=== PATIENT | male | born 1975 | race Asian ===

== ENCOUNTER 2018-06-06 13:58 | Inpatient (IN) | payer OTHER, MEDICAID ==
[~2018-06-06] VITALS: Ht 180.3 cm; Wt 95.7 kg
[2018-06-06 16:45] LABS: BASOPHIL % 1.1 % (0-2); PLATELET COUNT 294 x10^3mcL (130-400); RED CELL DISTRIBUTION WIDTH 13.3 % (11.5-14.5)
[2018-06-06 16:59] LABS: CALCIUM 8.8 mg/dL (8.5-10.1); CARBON DIOXIDE 29.7 mmol/L (21-32); CHLORIDE SERUM 101 mmol/L (98-107); CREATININE SERUM 0.7 mg/dL (0.7-1.3); GFR1 > 60 mL/min; GLUCOSE SERUM 107 mg/dL (74-106); POTASSIUM SERUM 3.8 mmol/L (3.5-5.1); SODIUM SERUM 139 mmol/L (136-145)
[2018-06-06] MEDS ORDERED: FERROUS SULFAT325 M2 PO (17:08)
[2018-06-06] MEDS ORDERED: DANTRIUM25 MG PO (17:08)
[2018-06-06] MEDS ORDERED: PEPCID20 MG PO (17:08)
[2018-06-06] MEDS ORDERED: VITAMIN C500 M6 PO (17:08)
[2018-06-06] MEDS ORDERED: CLONAZEPAM2 MG PO (17:09)
[2018-06-06] MEDS ORDERED: SEROQUEL25 MG PO (17:09)
[2018-06-06] MEDS ORDERED: VIMPAT100 M1 PO (17:09)
[2018-06-06 17:11] LABS: FREE T4 0.85 ng/dL (0.76-1.46); FREE THYROXINE INDEX 2.3 ug/dL (1.4-4.5)
[2018-06-06 17:15] LABS: T3 TOTAL 0.98 ng/mL
[2018-06-06 17:18] LABS: ALBUMIN 3.9 g/dL (3.4-5.0); ALKALINE PHOSPHATASE 126 U/L (46-116); ALT/SGPT 77 U/L (16-63); AST/SGOT 38 U/L (15-37); BILIRUBIN TOTAL 0.39 mg/dL (0.20-1.00); C REACTIVE PROTEIN 0.5 mg/dL (<=0.9); TOTAL PROTEIN, SERUM 7.5 g/dL (6.4-8.2)
[2018-06-06 17:26] LABS: CK-MB 1.8 ng/mL (0-3.6)
[2018-06-06 17:37] LABS: ERYTHROCYTE SED RATE 6 mm/hr (0-15)
[2018-06-06 18:05] LABS: MAGNESIUM 2.2 mg/dL (1.8-2.4)
[2018-06-06 18:10] LABS: CHOLESTEROL/HDL RATIO 2.7
[2018-06-06 18:24] VITALS: BP 137/77
[2018-06-06 18:28] LABS: UA SPECIFIC GRAVITY <=1.005 (1.005-1.035); microscopic required? YES; urine erythrocyte TRACE (NEGATIVE)
[2018-06-07 00:09] VITALS: Ht 180.3 cm; Wt 95.7 kg
[2018-06-07 05:41] VITALS: BP 116/70
[2018-06-07 07:05] LABS: ALBUMIN 3.6 g/dL (3.4-5.0); ALKALINE PHOSPHATASE 111 U/L (46-116); ALT/SGPT 68 U/L (16-63); AST/SGOT 31 U/L (15-37); BILIRUBIN TOTAL 0.4 mg/dL (0.20-1.00); CALCIUM 9.2 mg/dL (8.5-10.1); CARBON DIOXIDE 27.3 mmol/L (21-32); CHLORIDE SERUM 104 mmol/L (98-107); CREATININE SERUM 0.7 mg/dL (0.7-1.3); GFR1 > 60 mL/min; GLUCOSE SERUM 101 mg/dL (74-106); MAGNESIUM 1.9 mg/dL (1.8-2.4); PHOSPHOROUS 4.6 mg/dL (2.5-4.9); POTASSIUM SERUM 4.1 mmol/L (3.5-5.1); SODIUM SERUM 140 mmol/L (136-145); TOTAL PROTEIN, SERUM 6.6 g/dL (6.4-8.2)
[2018-06-07 07:10] LABS: BASOPHIL % 0.2 % (0-2); PLATELET COUNT 277 x10^3mcL (130-400); RED CELL DISTRIBUTION WIDTH 13.6 % (11.5-14.5)
[2018-06-07 09:23] VITALS: BP 108/69
[2018-06-07 17:00] VITALS: BP 123/82
[2018-06-07 20:57] VITALS: BP 113/66
[2018-06-08 05:06] VITALS: BP 103/65
[2018-06-08 07:28] LABS: CALCIUM 8.8 mg/dL (8.5-10.1); CARBON DIOXIDE 26.1 mmol/L (21-32); CHLORIDE SERUM 102 mmol/L (98-107); CREATININE SERUM 0.7 mg/dL (0.7-1.3); GFR1 > 60 mL/min; GLUCOSE SERUM 103 mg/dL (74-106); MAGNESIUM 2.1 mg/dL (1.8-2.4); PHOSPHOROUS 4.7 mg/dL (2.5-4.9); POTASSIUM SERUM 3.5 mmol/L (3.5-5.1); SODIUM SERUM 139 mmol/L (136-145)
[2018-06-08 07:36] LABS: BASOPHIL % 0.2 % (0-2); PLATELET COUNT 281 x10^3mcL (130-400); RED CELL DISTRIBUTION WIDTH 13.2 % (11.5-14.5)
[2018-06-08 09:01] VITALS: BP 103/65
[2018-06-08 16:57] VITALS: BP 123/73
[2018-06-08 20:50] VITALS: BP 121/80
[2018-06-09 05:18] VITALS: BP 115/71
[2018-06-09 07:09] LABS: BASOPHIL % 0.4 % (0-2); PLATELET COUNT 305 x10^3mcL (130-400)
[2018-06-09 07:20] LABS: CALCIUM 8.8 mg/dL (8.5-10.1); CARBON DIOXIDE 26.8 mmol/L (21-32); CHLORIDE SERUM 100 mmol/L (98-107); CREATININE SERUM 0.7 mg/dL (0.7-1.3); GFR1 > 60 mL/min; GLUCOSE SERUM 117 mg/dL (74-106); MAGNESIUM 1.8 mg/dL (1.8-2.4); PHOSPHOROUS 4.3 mg/dL (2.5-4.9); POTASSIUM SERUM 3.3 mmol/L (3.5-5.1); SODIUM SERUM 137 mmol/L (136-145)
[2018-06-09 09:03] VITALS: BP 113/80
[2018-06-09 16:08] VITALS: BP 129/83
[2018-06-09 16:14] VITALS: BP 122/86
[2018-06-09] MEDS ORDERED: NOVAPLUS MEROPEN1 GM IV (19:29)
[2018-06-09 19:58] VITALS: BP 122/86
[2018-06-09 21:23] VITALS: BP 119/73
== END 2018-06-09 22:32 | disposition home health service (06) | DRG 690 ==
LOC: ED 13:58 → MU 17:28
PROVIDERS: Specialist; ADMIT Family Medicine
DX: N39.0 Urinary tract infection, site not specified (principal); E72.20 Disorder of urea cycle metabolism, unspecified; E87.6 Hypokalemia; B96.1 Klebsiella pneumoniae [K. pneumoniae] as the cause of diseases classified elsewhere; Z86.61 Personal history of infections of the central nervous system; Z16.24 Resistance to multiple antibiotics
CPT/HCPCS: 84439; 97110-GP; 97116-GP; C1751; J1170; J1580; J2185; J7030; Q0092

== ENCOUNTER 2018-06-23 12:04 | Emergency (ER) | payer OTHER, MEDICAID ==
[~2018-06-23] VITALS: Ht 180.3 cm; Wt 97.7 kg
[~2018-06-23 12:04] MED LIST: CLONAZEPAM2 MG PO; DANTRIUM25 MG PO; FERROUS SULFAT325 M2 PO; NOVAPLUS MEROPEN1 GM IV; PEPCID20 MG PO; SEROQUEL25 MG PO; VIMPAT100 M1 PO; VITAMIN C500 M6 PO
[2018-06-23 12:37] VITALS: Ht 180.3 cm; Wt 97.7 kg
[2018-06-23 16:36] VITALS: BP 124/68
== END 2018-06-23 16:36 | disposition home or self-care (01) ==
LOC: ED 12:04
DX: T82.898A Other specified complication of vascular prosthetic devices, implants and grafts, initial encounter (principal); Z88.8 Allergy status to other drugs, medicaments and biological substances; Z98.890 Other specified postprocedural states

== ENCOUNTER 2018-07-07 17:16 | Inpatient (IN) | payer OTHER, MEDICAID ==
[~2018-07-07] VITALS: Ht 180.3 cm; Wt 97.7 kg
[2018-07-07 18:59] LABS: CALCIUM 8.7 mg/dL (8.5-10.1); CHLORIDE SERUM 103 mmol/L (98-107); CREATININE SERUM 0.8 mg/dL (0.7-1.3); GFR1 > 60 mL/min; GLUCOSE SERUM 104 mg/dL (74-106); POTASSIUM SERUM 4.1 mmol/L (3.5-5.1); SODIUM SERUM 140 mmol/L (136-145)
[2018-07-07 19:01] LABS: UA SPECIFIC GRAVITY <=1.005 (1.005-1.035); microscopic required? YES; urine erythrocyte NEGATIVE (NEGATIVE)
[2018-07-07 19:02] LABS: PLATELET COUNT 285 x10^3mcL (130-400); RED CELL DISTRIBUTION WIDTH 13.1 % (11.5-14.5)
[2018-07-07 19:04] LABS: ALBUMIN 3.8 g/dL (3.4-5.0); ALKALINE PHOSPHATASE 116 U/L (46-116); ALT/SGPT 41 U/L (16-63); AST/SGOT 21 U/L (15-37); BILIRUBIN TOTAL 0.29 mg/dL (0.20-1.00)
[2018-07-07 19:41] LABS: BAND NEUTROPHIL 0 % (0-10); BASOPHIL 0 % (0-2); MONOCYTE 16 % (0-7); SEGMENTED NEUTROPHILS 31 % (37-75)
[2018-07-07 19:43] LABS: rbc morphology (normal/abnorm) NORMAL (NORMAL)
[2018-07-07 20:27] LABS: T3 TOTAL 1.15 ng/mL
[2018-07-07 20:31] LABS: FREE T4 0.94 ng/dL (0.76-1.46); FREE THYROXINE INDEX 2.5 ug/dL (1.4-4.5); T4(THYROXINE) 6.5 ug/dL (4.7-13.3)
[2018-07-07 20:51] LABS: CHOLESTEROL/HDL RATIO 3.4; MAGNESIUM 2.2 mg/dL (1.8-2.4)
[2018-07-07 21:15] VITALS: BP 113/78
[2018-07-07 21:53] LABS: AMPHETAMINE QUAL UR NONE DETECTED (See below)
[2018-07-08 05:13] VITALS: BP 100/53
[2018-07-08 07:44] LABS: CALCIUM 8.9 mg/dL (8.5-10.1); CARBON DIOXIDE 27.6 mmol/L (21-32); CHLORIDE SERUM 106 mmol/L (98-107); CREATININE SERUM 0.7 mg/dL (0.7-1.3); GFR1 > 60 mL/min; GLUCOSE SERUM 93 mg/dL (74-106); PHOSPHOROUS 4.3 mg/dL (2.5-4.9); POTASSIUM SERUM 3.5 mmol/L (3.5-5.1); SODIUM SERUM 141 mmol/L (136-145)
[2018-07-08 08:26] LABS: PLATELET COUNT 257 x10^3mcL (130-400)
[2018-07-08 08:44] VITALS: BP 111/67
[2018-07-08 10:44] LABS: BAND NEUTROPHIL 4 % (0-10); MONOCYTE 24 % (0-7); SEGMENTED NEUTROPHILS 24 % (37-75)
[2018-07-08 10:45] LABS: PLATELET MORPHOLOGY PLATELETS NORMAL
[2018-07-08] MEDS ORDERED: VIMPAT100 M1 PO (11:25)
[2018-07-08 14:17] LABS: rbc morphology (normal/abnorm) NORMAL (NORMAL)
[2018-07-08 17:02] VITALS: BP 126/77
[2018-07-08 20:44] VITALS: BP 122/76
[2018-07-09 06:32] LABS: CALCIUM 9.2 mg/dL (8.5-10.1); CARBON DIOXIDE 26.9 mmol/L (21-32); CHLORIDE SERUM 106 mmol/L (98-107); CREATININE SERUM 0.7 mg/dL (0.7-1.3); GFR1 > 60 mL/min; GLUCOSE SERUM 89 mg/dL (74-106); POTASSIUM SERUM 3.5 mmol/L (3.5-5.1); SODIUM SERUM 142 mmol/L (136-145)
[2018-07-09 07:24] LABS: PLATELET COUNT 276 x10^3mcL (130-400); RED CELL DISTRIBUTION WIDTH 13.1 % (11.5-14.5)
[2018-07-09 09:05] LABS: ATYPICAL LYMPH 10 %; BAND NEUTROPHIL 1 % (0-10); BASOPHIL 0 % (0-2); MONOCYTE 17 % (0-7); SEGMENTED NEUTROPHILS 53 % (37-75)
[2018-07-09 09:06] LABS: rbc morphology (normal/abnorm) ABNORMAL (NORMAL)
[2018-07-09 09:07] LABS: PLATELET MORPHOLOGY PLATELETS NORMAL
[2018-07-09 10:07] VITALS: BP 133/80
[2018-07-09 12:00] VITALS: BP 124/76
[2018-07-09 17:00] VITALS: BP 131/80
[2018-07-09 20:27] VITALS: BP 119/67
[2018-07-10 06:19] VITALS: BP 114/71
[2018-07-10 06:28] LABS: CARBON DIOXIDE 27.4 mmol/L (21-32); CHLORIDE SERUM 105 mmol/L (98-107); CREATININE SERUM 0.7 mg/dL (0.7-1.3); GFR1 > 60 mL/min; GLUCOSE SERUM 91 mg/dL (74-106); POTASSIUM SERUM 3.4 mmol/L (3.5-5.1); SODIUM SERUM 143 mmol/L (136-145)
[2018-07-10 06:37] LABS: BASOPHIL % 0.3 % (0-2); PLATELET COUNT 281 x10^3mcL (130-400); RED CELL DISTRIBUTION WIDTH 13.2 % (11.5-14.5)
[2018-07-10 09:52] VITALS: BP 121/86
[2018-07-10 13:59] VITALS: BP 115/74
[2018-07-10 15:29] VITALS: Ht 180.3 cm; Wt 97.7 kg
[2018-07-10 17:36] VITALS: BP 100/64
[2018-07-10 20:57] VITALS: BP 117/64
[2018-07-11 05:52] VITALS: BP 115/79
[2018-07-11 05:57] LABS: BASOPHIL % 0.4 % (0-2); PLATELET COUNT 297 x10^3mcL (130-400); RED CELL DISTRIBUTION WIDTH 13.2 % (11.5-14.5)
[2018-07-11 06:24] LABS: CALCIUM 8.6 mg/dL (8.5-10.1); CARBON DIOXIDE 27.2 mmol/L (21-32); CHLORIDE SERUM 102 mmol/L (98-107); CREATININE SERUM 0.6 mg/dL (0.7-1.3); GFR1 > 60 mL/min; GLUCOSE SERUM 97 mg/dL (74-106); POTASSIUM SERUM 3.9 mmol/L (3.5-5.1); SODIUM SERUM 139 mmol/L (136-145)
[2018-07-11 08:17] VITALS: BP 109/73
[2018-07-11 11:44] VITALS: BP 109/73
== END 2018-07-11 13:45 | disposition home or self-care (01) | DRG 689 ==
LOC: ED 17:16 → MU 19:36 → DU 19:36 → MU 20:50 → DU 07-09 06:17 → MU 07-11 05:34
PROVIDERS: Emergency Medicine; Internal Medicine; ADMIT Family Medicine
DX: N39.0 Urinary tract infection, site not specified (principal); G04.81 Other encephalitis and encephalomyelitis; B96.1 Klebsiella pneumoniae [K. pneumoniae] as the cause of diseases classified elsewhere; E78.5 Hyperlipidemia, unspecified; Z16.24 Resistance to multiple antibiotics; Z68.30 Body mass index [BMI] 30.0-30.9, adult; Z86.61 Personal history of infections of the central nervous system
CPT/HCPCS: 83880; 84439; J1580; J2185; J7030; Q0092